=== PATIENT | female | born 1985 | race Caucasian/White ===

== ENCOUNTER 2021-10-10 20:00 | Inpatient (IN) | payer OTHER ==
[2021-10-10] MEDS: DEXTROSE 5%-LACTATED RINGERS 1,000 ML IV SCH (21:00)
[2021-10-10 21:04] LABS: BASO % 0.3 % (0-2.0); EOS % 0.8 % (0-4.5); HEMATOCRIT 36.7 % (32.4-45.2); HEMOGLOBIN 12.2 GM/dL (10.7-15.3); LYMPH % 29.1 % (8-40); MCH 26.8 pg (25.7-33.7); MCHC 33.4 g/dl (32.0-36.0); MEAN CELL VOLUME 80.4 fl (80-96); MEAN PLT VOLUME 8.7 fl (7.5-11.1); MONO % 7.6 % (3.8-10.2); NEUT % 62.2 % (42.8-82.8); PLATELET COUNT 145 10^3/uL (134-434); RBC 4.56 M/mm3 (3.60-5.2); WHITE BLOOD COUNT 5.5 K/mm3 (4.0-10.0)
[2021-10-10 21:14] LABS: INR 0.99 (0.83-1.09); PROTHROMBIN TIME (PATIENT) 11.4 SEC (9.7-13.0)
[2021-10-10 21:16] LABS: ACTIVATED PTT 28.8 SECONDS (25.2-36.5)
[2021-10-10 21:22] LABS: CALCIUM 8.3 mg/dL (8.5-10.1)
[2021-10-10 21:23] LABS: BLOOD UREA NITROGEN 13.7 mg/dL (7-18)
[2021-10-10 21:26] LABS: CREATININE 0.8 mg/dL (0.55-1.3)
[2021-10-10 22:10] VITALS: BMI 31.8
[2021-10-10] MEDS: MISOPROSTOL 100 MCG TABLET PV SCH (23:00)
[2021-10-11] MEDS: MISOPROSTOL 100 MCG TABLET PV SCH ×5 (03:00→18:06)
[2021-10-11] MEDS: DEXTROSE 5%-LACTATED RINGERS 1,000 ML IV SCH ×2 (04:15→14:15)
[2021-10-11] MEDS ORDERED: PENICILLIN G POTASSIUM 20,000,000 (20Mm) UNITS VIAL IVPB ONE (09:47)
[2021-10-11] MEDS ORDERED: PENICILLIN G POTASSIUM 5,000,000 UNIT in SODIUM CHLORIDE 250 ML IVPB ONE (11:00)
[2021-10-11] MEDS ORDERED: morphine SULFATE 4 MG/ML VIAL IVPB ONE (12:30)
[2021-10-11] MEDS: PENICILLIN G POTASSIUM 2,500,000 UNIT in SODIUM CHLORIDE 100 ML IVPB SCH ×2 (14:24→19:24)
[2021-10-11] MEDS ORDERED: OXYTOCIN 30 UNITS in 0.9% NS 30 UNIT/500 ML INFUS.BAG IVPB SCH (14:45)
[2021-10-11] MEDS ORDERED: OXYTOCIN 20 UNITS in 0.9% NS 20 UNIT/1,000 ML INFUS.BAG IV ONE (17:29)
[2021-10-11] MEDS ORDERED: SODIUM CHLORIDE 500 ML IV STA (17:55)
[2021-10-11 19:21] LABS: CORD BASE EXCESS -4.5 mmol/L (0-2); CORD BASE EXCESS -6.3 mmol/L (0-2); CORD HCO3 19.8 mmHg (20-29); CORD PCO2 40.2 mmHg (30-78); CORD PCO2 41.3 mmHg (30-78); CORD pH 7.298 (7.14-7.44); CORD pH 7.335 (7.14-7.44)
[2021-10-11] MEDS ORDERED: METHYLERGONOVINE MALEATE 0.2 MG/1 ML AMP IM PRN (19:39)
[2021-10-11] MEDS ORDERED: WITCH HAZEL 50% (TUCKS) 40 PAD/JAR PAD TP PRN (19:39)
[2021-10-11] MEDS ORDERED: BENZOCAINE 20% 57 GM BOTTLE TP PRN (19:39)
[2021-10-11] MEDS ORDERED: ACETAMINOPHEN 325 MG TABLET (FP) PO PRN (19:39)
[2021-10-11] MEDS ORDERED: BENZOCAINE 28 GM HEMORRHOIDAL OINTMENT TP PRN (19:39)
[2021-10-11] MEDS ORDERED: OXYTOCIN 20 UNITS in 0.9% NS 20 UNIT/1,000 ML INFUS.BAG IV SCH (19:45)
[2021-10-12 08:18] LABS: BASO % 0.3 % (0-2.0); EOS % 0.3 % (0-4.5); HEMATOCRIT 24.8 % (32.4-45.2); HEMOGLOBIN 7.9 GM/dL (10.7-15.3); LYMPH % 20.7 % (8-40); MCH 26.3 pg (25.7-33.7); MCHC 32.1 g/dl (32.0-36.0); MEAN PLT VOLUME 9.1 fl (7.5-11.1); MONO % 7.2 % (3.8-10.2); NEUT % 71.5 % (42.8-82.8); PLATELET COUNT 115 10^3/uL (134-434); RBC 3.02 M/mm3 (3.60-5.2); WHITE BLOOD COUNT 11.2 K/mm3 (4.0-10.0)
[2021-10-12] MEDS: PRENATAL VITAMINS W/ FOLIC ACID TABLET (FP) PO SCH (09:00)
[2021-10-12] MEDS: FERROUS SO4 325 MG TABLET (FP) PO SCH ×3 (09:12→18:10)
[2021-10-12] MEDS: IBUPROFEN 600 MG TABLET (FP) PO PRN (18:25)
[2021-10-12] MEDS ORDERED: SENNOSIDES/DOCUSATE COMBO (SENNA PLUS) TABLET (UD) PO PRN (22:00)
[2021-10-12 22:04] VITALS: RESP 16
[2021-10-13] MEDS: PRENATAL VITAMINS W/ FOLIC ACID TABLET (FP) PO SCH (09:06)
[2021-10-13] MEDS: FERROUS SO4 325 MG TABLET (FP) PO SCH ×2 (09:06→12:07)
[2021-10-13 09:40] LABS: POC NITRAZINE POS
[2021-10-13] MEDS: IBUPROFEN 600 MG TABLET (FP) PO PRN (09:58)
[2021-10-13 10:40] VITALS: BP 102/56; PULSE 103; TEMP 98.2
== END 2021-10-13 13:05 | disposition home or self-care (01) | DRG 560 ==
LOC: JLDR 20:00 → J3W 10-11 21:15
PROVIDERS: ADMIT Obstetrics & Gynecology Maternal & Fetal Medicine; ATTEND Obstetrics & Gynecology Maternal & Fetal Medicine
PROC: 10E0XZZ Delivery of Products of Conception, External Approach (ICD-10-PCS; principal; 2021-10-11)
PROC: 0UQMXZZ Repair Vulva, External Approach (ICD-10-PCS; 2021-10-11)
PROC: 0HQ9XZZ Repair Perineum Skin, External Approach (ICD-10-PCS; 2021-10-11)
PROC: 0W8NXZZ Division of Female Perineum, External Approach (ICD-10-PCS; 2021-10-11)
DX: O48.0 Post-term pregnancy (principal); O99.12 Other diseases of the blood and blood-forming organs and certain disorders involving the immune mechanism complicating childbirth; Z3A.40 40 weeks gestation of pregnancy; D69.6 Thrombocytopenia, unspecified; O70.0 First degree perineal laceration during delivery; O71.82 Other specified trauma to perineum and vulva; Z37.0 Single live birth
CPT/HCPCS: 36415; 36600; 59409; 80048; 82803; 83986-QW; 85025; 85610; 85730; 86780; 86850; 86900; 86901; C9803-CS; U0003; U0005